=== PATIENT | female | born 1960 | race Caucasian/White ===

== ENCOUNTER → 2016-12-20 | Outpatient (CLI) | payer BC ==
--- NOTE | 2016-12-20 17:21 | RAD ---
INDICATION: Abdominal pain. COMPARISON: None. TECHNIQUE: Grayscale and color ultrasound images obtained through the abdomen. FINDINGS: Aorta/IVC: Partially visualized without gross aneurysm. Pancreas: Partially seen without definite adjacent fluid collection. Liver: Predominantly echogenic. Portions of the liver are not well seen on this exam. 13 mm hypoechoic region within the hepatic parenchyma adjacent to gallbladder. Heterogenous region within the right lobe of the liver measuring up to 7 cm Gallbladder: No definite stones or wall thickening. Common Bile Duct: Not dilated. Right Kidney: No hydronephrosis. Left Kidney: No hydronephrosis. Spleen: Poorly seen. Visualized portion appears mildly heterogenous. IMPRESSION: Heterogenous region within the right lobe of the liver. This is of unknown etiology but one possible cause is an infiltrative mass within the region. A follow-up liver protocol MRI could be helpful to further evaluate. The majority of the hepatic parenchyma is echogenic which can be seen with fatty infiltration. Small hypoechoic region within the liver adjacent to gallbladder. Could be a region of focal fatty sparing but can be evaluated on patient's recommended MRI as well.
== END | disposition home or self-care (01) ==
LOC: US 11:07
PROVIDERS: ATTEND Family Medicine
DX: R10.11 Right upper quadrant pain (principal)
CPT/HCPCS: 76700

== ENCOUNTER 2017-01-19 09:37 | Outpatient (CLI) | payer BC ==
[~2017-01-19] VITALS: Ht 170.2 cm; Wt 99.8 kg
[2017-01-19] VITALS (11 sets, daily range): BP systolic 133–149; BP diastolic 74–91
[2017-01-19 10:16] LABS: BASO # 0.1 x10^3/uL (0.0-0.2); BASO % 1 % (0-3); EOS % 4 % (0-3); HEMATOCRIT 41.6 % (36.0-47.0); LYMPH % 36 % (24-48); MEAN CORPUSCULAR HEMOGLOBIN 31 pg (25-35); MEAN CORPUSCULAR HGB CONC 34 g/dL (31-37); MEAN CORPUSCULAR VOLUME 92 fL (79-100); MONO % 7 % (0-9); NEUT % 53 % (31-73); PLATELET COUNT 265 x10^3/uL (140-400); RED BLOOD COUNT 4.52 x10^6/uL (3.50-5.40); WHITE BLOOD COUNT 5.7 x10^3/uL (4.0-11.0)
[2017-01-19 10:38] LABS: PROTHROMBIN TIME PATIENT 12.1 SEC (11.7-14.0)
[2017-01-19] MEDS ORDERED: LIDOCAINE 1% / SOD BICARB 8.4% 20 ML VIAL. IJ ONE ×2 (10:46→11:15)
[2017-01-19] MEDS ORDERED: GELATIN SPONGE SIZE 12-7MM SPONGE. ONE (10:48)
[2017-01-19] MEDS ORDERED: fentaNYL PF VIAL 100 MCG/2 ML VIAL ONE (11:06)
[2017-01-19] MEDS ORDERED: MIDAZOLAM HCL/PF 2 MG/2 ML VIAL. ONE (11:07)
[2017-01-19] MEDS ORDERED: fentaNYL PF VIAL 100 MCG/2 ML VIAL IV ONE (11:15)
[2017-01-19] MEDS ORDERED: MIDAZOLAM HCL/PF 2 MG/2 ML VIAL. IV ONE (11:15)
--- NOTE | 2017-01-21 15:02 | PATHOLOGY ---
PATHOLOGY REPORT * * * * * * * * FINAL DIAGNOSIS: Liver tissue, liver mass CT guided needle biopsy: - Final results pending consultation. COMMENT: Sections of the liver mass CT guided needle biopsy reveal several segments of liver tissue. There is a large, sparsely cellular area of hepatic scarring containing scattered small blood vessels. The adjacent liver tissue shows fatty change and fibrosis. There is no evidence of malignancy. The case is forwarded for expert consultation. (JPM:pit; 01/21/2017) Special Stains: Trichrome, reticulin, iron stain and PAS with and without diastase. REPORT ELECTRONICALLY SIGNED BY: Thomas Gutierrez M.D. DATE/TIME: 01/21/2017 15:01 * * * * * * * * GROSS PATHOLOGY: Received in formalin labeled "Jeferson Collazo, liver mass tissue," are 3 distinct needle cores of dsouza soft tissue ranging from 1.5 to 1.8 cm in length, which are submitted entirely in cassette A1. (TSD; 01/19/2017) INITIAL CPT CODE(S): A; 12973, 02399, 29686, 25212, 97625, 77880 Professional services [place] [facility] [place] [address] Technical services performed by [facility] at [address] [place] [address], [address], [place] [address]. SPECIMEN(S) RECEIVED: A.Liver mass biopsy CLINICAL HISTORY: Several liver masses; the largest liver mass is biopsied.; no known primary malignancy. PATIENT: JEFERSON COLLAZO /AGE: 305/01/1960 (Age: 56) PATIENT #: [id number] ALT CASE #: SPECIMEN COLLECTION DATE: 01/19/2017 SPECIMEN RECEIVED DATE: 01/19/2017 [facility] - [address] [place] [address] - PHONE: [phone] * * * END OF REPORT * * *
--- NOTE | 2017-01-21 16:11 | RAD ---
Ultrasound-guided biopsy of right hepatic abnormality 01/19/2017 Indication: Multiple hepatic masses including a large right hepatic mass, uncertain etiology. Nonspecific ultrasound and MRI characteristics. Discussion: The risks and benefits of the procedure were discussed the patient. Informed consent was obtained. A timeout procedure was performed. The right upper abdomen was prepped and draped using maximum sterile barrier technique. Ultrasound interrogation of the abdomen demonstrated an area of irregularity in the right hepatic lobe similar to prior ultrasound findings: Correlating with an abnormally enhancing mass in the right hepatic lobe. This area was targeted for biopsy 1% lidocaine without epinephrine was administered for local anesthesia. 17-gauge guiding needle was advanced into this area under direct ultrasound guidance. Multiple 18-gauge core biopsy samples were obtained. Gelfoam embolization of the biopsy tract was performed as needle was removed. No immediate complications were identified. The procedures performed under conscious sedation including continuous cardiopulmonary monitoring via dedicated sedation nurse. Sedation time: 30 minutes. Impression: Ultrasound-guided biopsy of right hepatic masslike abnormality
== END 2017-01-19 14:40 | disposition home or self-care (01) ==
LOC: INTRAD 09:37
PROVIDERS: ATTEND Family Medicine
DX: R16.0 Hepatomegaly, not elsewhere classified (principal); K21.9 Gastro-esophageal reflux disease without esophagitis; Z90.721 Acquired absence of ovaries, unilateral; M19.90 Unspecified osteoarthritis, unspecified site; F41.9 Anxiety disorder, unspecified
CPT/HCPCS: 36415; 47000; 76942; 85025; 85610; J2250; J3010; 88307; 88313; 99152; 99153